=== PATIENT | male | born 1970 | race Caucasian/White ===

== ENCOUNTER 2017-03-06 11:20 | Emergency (ER) | payer BC ==
[2017-03-06 13:20] VITALS: BP 110/76
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
== END 2017-03-06 13:52 | disposition home or self-care (01) ==
LOC: UCCORT 11:20
DX: H61.23 Impacted cerumen, bilateral (principal)
CPT/HCPCS: 99213; G0463

== ENCOUNTER 2018-06-09 10:06 | Emergency (ER) | payer BC, OTHER ==
[2018-06-09 10:25] VITALS: BP 119/75
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
== END 2018-06-09 10:57 | disposition home or self-care (01) ==
LOC: UCCORT 10:06
DX: H60.92 Unspecified otitis externa, left ear (principal)
CPT/HCPCS: 99213; G0463

== ENCOUNTER 2018-10-15 19:48 | Emergency (ER) | payer MEDICAID ==
[2018-10-15 20:01] VITALS: BP 116/77
[2018-10-15] MEDS ORDERED: Ibuprofen TAB* 600 MG PO ONE (20:09)
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
--- NOTE | 2018-10-16 10:11 | UC ---
- EKG/XRAY/CT Xray Comments: wet read correct Course/Dx - Diagnoses Provider Diagnoses: Low back pain, Thumb pain Discharge - Sign-Out/Discharge Documenting (check all that apply): Post-Discharge Follow Up All imaging exams completed and their final reports reviewed: Yes - Discharge Plan Condition: Fair Disposition: HOME Prescriptions: Ibuprofen TAB* [Motrin TAB* 600 MG] 600 mg PO Q8H PRN #21 tab PRN Reason: Pain Patient Education Materials: Chronic Back Pain (DC), Lower Back Exercises (ED) Referrals: [facility] [Provider Group] No Primary Care Phys,NOPCP [Primary Care Provider] - Additional Instructions: Avoid movements that cause pain, may apply heat to the sore area, avoid excessive sitting or excessive standing. Take the Motrin every 8 hours with food as needed for back pain. Follow-up with your primary care provider for further care, possible referral or referral to physical therapy. Follow-up with your primary care provider if you continue to have thumb pain or if any worsening of pain. - Billing Disposition and Condition Condition: FAIR Disposition: Home
== END 2018-10-15 20:28 | disposition home or self-care (01) ==
LOC: UCCORT 19:48
DX: M54.5 Low back pain (principal); G89.29 Other chronic pain; M79.644 Pain in right finger(s); X50.0XXA Overexertion from strenuous movement or load, initial encounter; Y93.89 Activity, other specified; Y92.9 Unspecified place or not applicable
CPT/HCPCS: 99212; A9270-GY; G0463

== ENCOUNTER 2018-11-14 14:34 | Emergency (ER) | payer MEDICAID, OTHER ==
[2018-11-14 15:13] VITALS: BP 121/75
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
== END 2018-11-14 16:15 | disposition home or self-care (01) ==
LOC: UCCORT 14:34
DX: R21 Rash and other nonspecific skin eruption (principal)
CPT/HCPCS: 99212; G0463

== ENCOUNTER 2019-01-23 17:05 | Emergency (ER) | payer OTHER ==
[2019-01-23 17:26] VITALS: BP 113/75
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
== END 2019-01-23 17:47 | disposition home or self-care (01) ==
LOC: UCCORT 17:05
DX: B35.4 Tinea corporis (principal)
CPT/HCPCS: 99212; G0463

== ENCOUNTER 2019-03-23 08:51 | Emergency (ER) | payer OTHER ==
[2019-03-23 09:48] VITALS: BP 108/75
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
== END 2019-03-23 10:25 | disposition home or self-care (01) ==
LOC: UCCORT 08:51
DX: B86 Scabies (principal)
CPT/HCPCS: 99212; G0463